=== PATIENT | male | born 1990 | race American Indian/Alaskan Native ===

== ENCOUNTER 2018-01-28 12:56 | Emergency (ER) | payer SELFPAY ==
[2018-01-28 13:05] VITALS: BP 150/80
[2018-01-28] MEDS ORDERED: MORPHINE IV ONE (13:32)
[2018-01-28] MEDS ORDERED: ZOFRAN IV ONE (13:32)
[2018-01-28] MEDS ORDERED: TORADOL IV ONE (13:32)
--- NOTE | 2018-01-28 13:36 | Emergency Department Report ---
ED Abdominal Pain HPI - General Chief Complaint: Abdominal Pain Stated Complaint: BLEEDING WHEN URINATE/SIDE PAIN Time Seen by Provider: 01/28/18 13:30 Source: patient Mode of arrival: Ambulatory Limitations: No Limitations - History of Present Illness Initial Comments: Riley is a healthy 27-year-old male presents with one-month of flank pain and hematuria. Pain markedly increased in severity today. No penile discharge. No history of kidney stones MD Complaint: flank pain -: Gradual, month(s) (1) Location: LLQ, L flank Severity: severe Severity scale (0 -10): 10 Quality: sharp Consistency: constant Improves With: nothing Worsens With: nothing Associated Symptoms: hematuria - Related Data Previous Rx's Medication Instructions Recorded Last Taken Type Promethazine [Phenergan TAB] 25 mg PO Q6HR PRN #10 tab 01/28/18 Unknown Rx Tamsulosin HCl [Flomax] 0.4 mg PO DAILY 5 Days #5 01/28/18 Unknown Rx cap.er.24h oxyCODONE /ACETAMINOPHEN [Percocet 1 tab PO Q6HR PRN #15 tablet 01/28/18 Unknown Rx 5/325] Allergies Allergy/AdvReac Type Severity Reaction Status Date / Time No Known Allergies Allergy Unverified 01/28/18 13:05 ED Review of Systems ROS: Stated complaint: BLEEDING WHEN URINATE/SIDE PAIN Other details as noted in HPI Comment: All other systems reviewed and negative Constitutional: denies: fever, malaise Respiratory: denies: cough Cardiovascular: denies: chest pain ED Past Medical Hx - Past Medical History Previous Medical History?: No - Surgical History Past Surgical History?: No - Social History Smoking Status: Never Smoker Substance Use Type: None - Medications Home Medications: Home Medications Medication Instructions Recorded Confirmed Last Taken Type Promethazine [Phenergan TAB] 25 mg PO Q6HR PRN #10 tab 01/28/18 Unknown Rx Tamsulosin HCl [Flomax] 0.4 mg PO DAILY 5 Days #5 01/28/18 Unknown Rx cap.er.24h oxyCODONE /ACETAMINOPHEN [Percocet 1 tab PO Q6HR PRN #15 tablet 01/28/18 Unknown Rx 5/325] ED Physical Exam - General Limitations: No Limitations General appearance: alert, other (appears uncomfortable pacing in room) - Head Head exam: Present: atraumatic, normocephalic - Eye Eye exam: Present: normal appearance - ENT ENT exam: Present: mucous membranes moist - Neck Neck exam: Present: normal inspection. Absent: tenderness, meningismus - Respiratory Respiratory exam: Present: normal lung sounds bilaterally. Absent: respiratory distress, wheezes, rales, rhonchi - Cardiovascular Cardiovascular Exam: Present: regular rate, normal rhythm, normal heart sounds. Absent: systolic murmur, diastolic murmur - GI/Abdominal GI/Abdominal exam: Present: soft. Absent: distended, tenderness, guarding, rebound - Extremities Exam Extremities exam: Present: normal inspection, full ROM - Back Exam Back exam: Present: normal inspection, full ROM. Absent: CVA tenderness (R), CVA tenderness (L) - Neurological Exam Neurological exam: Present: alert, oriented X3, normal gait - Psychiatric Psychiatric exam: Present: normal affect, normal mood, depressed, agitated - Skin Skin exam: Present: warm ED Course Vital Signs 01/28/18 01/28/18 13:02 13:45 Temperature 97.9 F Pulse Rate 57 L Respiratory 22 22 Rate Blood Pressure 150/80 O2 Sat by Pulse 100 Oximetry ED Medical Decision Making - Lab Data Result diagrams: 01/28/18 13:39 01/28/18 13:39 Vital Signs - 24 hr 01/28/18 01/28/18 13:02 13:45 Temperature 97.9 F Pulse Rate 57 L Respiratory 22 22 Rate Blood Pressure 150/80 O2 Sat by Pulse 100 Oximetry - Medical Decision Making Riley is a 27 yo male who presents with renal colic due to 5 mm distal ureteral stone. Pain has markedly improved. No fever, leukocytosis or SIRS criteria to indicated pyonephrosis, sepsis or bacteremia. patient given strict precautions to return for fever, malaise, vomiting or worsening pain> rx: percocet, promethazine flomax Critical care attestation.: If time is entered above; I have spent that time in minutes in the direct care of this critically ill patient, excluding procedure time. ED Disposition Clinical Impression: Kidney stone on left side, Renal colic on left side Disposition: - TO HOME OR SELFCARE Is pt being admited?: No Does the pt Need Aspirin: No Condition: Stable Instructions: Kidney Stones (ED) Prescriptions: oxyCODONE /ACETAMINOPHEN [Percocet 5/325] 1 tab PO Q6HR PRN #15 tablet PRN Reason: Pain Promethazine [Phenergan TAB] 25 mg PO Q6HR PRN #10 tab PRN Reason: Nausea Tamsulosin HCl [Flomax] 0.4 mg PO DAILY 5 Days #5 cap.er.24h
[2018-01-28] MEDS ORDERED: NACL 0.9% 1000 ML 1,000 ML ONE (13:40)
[2018-01-28] MEDS ORDERED: NACL 0.9% 1000 ML 1,000 ML IV ONE (13:47)
[2018-01-28 13:54] LABS: Bilirubin,Urine NEG (Negative); Blood,Urine LG (Negative); Color,Urine Straw (Yellow); Mucus,Urine FEW /HPF; Protein,Urine <15 mg/dL mg/dL (Negative); RBC,Urine > 182.0 /HPF (0.0-6.0); Urobilinogen,Urine < 2.0 mg/dL (<2.0)
[2018-01-28 14:02] LABS: Basophils % (Auto) 0.9 % (0.0-1.8); Eosinophils # (Auto) 0.1 K/mm3 (0.0-0.4); Eosinophils % (Auto) 1.1 % (0.0-4.3); Hematocrit 41.9 % (35.5-45.6); Hemoglobin 13.8 gm/dl (11.8-15.2); Lymphocytes % (Auto) 18.6 % (13.4-35.0); Mean Corpuscular HGB Conc 33 % (32-34); Mean Corpuscular Hemoglobin 30 pg (28-32); Mean Corpuscular Volume 91 fl (84-94); Monocytes # (Auto) 0.6 K/mm3 (0.0-0.8); Monocytes % (Auto) 12.1 % (0.0-7.3); Platelet Count 174 K/mm3 (140-440); Red Blood Count 4.62 M/mm3 (3.65-5.03); Red Cell Distribution Width 13.4 % (13.2-15.2)
[2018-01-28 14:13] LABS: Alanine Aminotransferase 13 units/L (7-56); Albumin 4.4 g/dL (3.9-5); BUN/Creatinine Ratio 12; Blood Urea Nitrogen 12 mg/dL (9-20); Calcium 9.1 mg/dL (8.4-10.2); Hemolysis Index 60; Lipase 13 units/L (13-60)
[2018-01-28 14:19] LABS: Bilirubin,Direct < 0.2 mg/dL (0-0.2)
--- NOTE | 2018-01-28 14:41 | Cat Scan Report ---
CT ABDOMEN PELVIS WITHOUT CONTRAST: HISTORY: Left flank pain. COMPARISON: none. TECHNIQUE: Helical CT in 1.25mm intervals without IV contrast. Sagittal and coronal reconstructions. FINDINGS: Lung bases: Normal. Liver: Normal. Biliary system: Normal. Pancreas: Normal. Spleen: Normal. Kidneys/ureters/bladder: There is moderate left hydronephrosis. A 5.2 mm calculus is identified in the distal left ureter. No renal stones are identified. No evidence for cystic disease or mass. The bladder is unremarkable. Adrenal glands: Normal. Aorta: Normal. Intestines: Within normal limits given oral contrast was administered. Appendix: Not confidently identified, correlate with surgical history. Pelvic viscera: Normal. Ascites: None. Adenopathy: None. Musculoskeletal: Normal. IMPRESSION: 5.2 mm calculus in the distal left ureter, obstructing.
[2018-01-28] MEDS ORDERED: PERCOCET 5/325 PO ONE (15:21)
== END 2018-01-28 15:47 | disposition home or self-care (01) ==
LOC: ED 12:56
DX: N20.0 Calculus of kidney (principal)
CPT/HCPCS: 36415; 74176; 80048; 80074; 81001; 83690; 85025; 87086; 96374; 96375; 99284; J1885; J2270; J2405; J7030